=== PATIENT | female | born 2000 | race Caucasian/White ===

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

== ENCOUNTER 2023-06-29 17:18 | Emergency (ER) | payer MEDICAID ==
[2023-06-29 17:27] VITALS: BP 123/67; PULSE 138
== END 2023-06-29 18:20 | disposition home or self-care (01) ==
LOC: JP.ED 17:18
DX: F12.129 Cannabis abuse with intoxication, unspecified (principal); Z91.048 Other nonmedicinal substance allergy status; Z90.49 Acquired absence of other specified parts of digestive tract
CPT/HCPCS: 99284